=== PATIENT | male | born 1950 | race Caucasian/White ===

== ENCOUNTER 2017-08-03 06:07 | Emergency (ER) | payer OTHER ==
[~2017-08-03] VITALS: Ht 180.3 cm; Wt 122.0 kg
[~2017-08-03 06:07] MED LIST: 1-ME1LIQ PO; LISI-586 PO; SAW500CA6 PO
[2017-08-03 06:08] VITALS: BP 165/84; PULSE 71; RESP 16; TEMP 97.8; O2SAT 97
[2017-08-03] MEDS ORDERED: AMLO10TA2 PO (06:17)
[2017-08-03] MEDS ORDERED: TAMS0.4C4 (06:17)
[2017-08-03] MEDS ORDERED: LISI10TA PO (06:17)
[2017-08-03] MEDS ORDERED: SODIUM CHLOR 0.9% 1000 ML INJ 1,000 ML IV SCH (06:18)
[2017-08-03 06:20] VITALS: RESP 16; O2SAT 97
--- NOTE | 2017-08-03 06:25 | PD ---
HPI . Abdominal pain Chief Complaint: Abdominal Pain Time Seen by Provider: 06:15 Travel History International Travel<30 days: No Contact w/Intl Traveler<30days: No Traveled to known affect area: No History of Present Illness HPI 67-year-old male notes exacerbation of recurrent diffuse abdominal pain the patient is noted several times over the past year. Patient is self treated with peppermint before the pain is gone away. His pain is worse, not abating, and escalating. Denies fevers chills sweats, denies nausea vomiting diarrhea, denies melena or hematochezia. Patient also denies dysuria urgency frequency. [facility] Past Medical History Narrative Medical Past medical history reviewed Social History Alcohol Use: Yes Tobacco Use: No Substance Use: No Allergies-Medications (Allergen,Severity, Reaction): Coded Allergies: No Known Allergies (Unverified Adverse Reaction, Unknown, 08/03/17) Reported Meds & Prescriptions Reported Meds & Active Scripts Active Reported Tamsulosin (Tamsulosin HCl) 0.4 Mg Cap 0.4 Mg HS Lisinopril-Hctz 10-12.5 Mg Tab 1 Tab PO DAILY Amlodipine (Amlodipine Besylate) 10 Mg Tab 10 Mg PO DAILY Narrative Medication Allergies and medications reviewed Review of Systems Except as stated in HPI: all other systems reviewed are Neg General / Constitutional: No: Fever Eyes: No: Visual changes HENT: No: Headaches Cardiovascular: No: Chest Pain or Discomfort Respiratory: No: Shortness of Breath Gastrointestinal: Positive: Abdominal Pain, Loss of Appetite, No: Nausea, Vomiting, Hematemesis, Hematochezia, Constipation Genitourinary: No: Urgency, Frequency, Dysuria, Hematuria Musculoskeletal: No: Pain Skin: No Rash Neurologic: No: Weakness Psychiatric: No: Depression Endocrine: No: Polydipsia Hematologic/Lymphatic: No: Easy Bruising Physical Exam Narrative GENERAL: Awake and alert, oriented 3, no acute distress, however patient appears uncomfortable. Vital signs afebrile normal and stable SKIN: Warm and dry. Color slightly flushed, patient states that she is normal, no diaphoresis cyanosis or pallor. HEAD: Atraumatic. Normocephalic. EYES: Pupils equal and round. No scleral icterus. No injection or drainage. ENT: No nasal bleeding or discharge. Mucous membranes pink and moist. NECK: Trachea midline. No JVD. Supple full range of motion CARDIOVASCULAR: Regular rate and rhythm. S1-S2 no murmurs rubs gallops RESPIRATORY: No accessory muscle use. Clear to auscultation. Breath sounds equal bilaterally. GASTROINTESTINAL: Abdomen soft, diffusely tender, no rebound or guarding, not overly tympanitic, not firm, nondistended. Hepatic and splenic margins not palpable. MUSCULOSKELETAL: Extremities without clubbing, cyanosis, or edema. No obvious deformities. NEUROLOGICAL: Awake and alert. No obvious focal deficits PSYCHIATRIC: Appropriate mood and affect; insight and judgment normal. Data Data Last Documented VS Vital Signs Date Time Temp Pulse Resp B/P (MAP) Pulse Ox O2 Delivery O2 Flow Rate FiO2 08/03/17 06:20 16 97 Room Air 08/03/17 06:08 97.8 71 Orders Orders Complete Blood Count With Diff (08/03/17 06:18) Comprehensive Metabolic Panel (08/03/17 06:18) Lipase (08/03/17 06:18) Lactic Acid (08/03/17 06:18) Prothrombin Time / Inr (Pt) (08/03/17 06:18) Act Partial Throm Time (Ptt) (08/03/17 06:18) Urinalysis - C+S If Indicated (08/03/17 06:18) Ct Abd/Pel W Iv Contrast(Rout) (08/03/17 06:18) Iv Access Insert/Monitor (08/03/17 06:18) Ecg Monitoring (08/03/17 06:18) Oximetry (08/03/17 06:18) Sodium Chlor 0.9% 1000 Ml Inj (Ns 1000 M (08/03/17 06:18) Sodium Chloride 0.9% Flush (Ns Flush) (08/03/17 06:30) Electrocardiogram (08/03/17 06:18) Labs Laboratory Tests Test 08/03/17 06:20 08/03/17 06:35 White Blood Count 8.3 TH/MM3 Red Blood Count 4.48 MIL/MM3 Hemoglobin 15.0 GM/DL Hematocrit 43.9 % Mean Corpuscular Volume 98.0 FL Mean Corpuscular Hemoglobin 33.4 PG Mean Corpuscular Hemoglobin Concent 34.1 % Red Cell Distribution Width 12.8 % Platelet Count 207 TH/MM3 Mean Platelet Volume 9.1 FL Neutrophils (%) (Auto) 70.9 % Lymphocytes (%) (Auto) 20.0 % Monocytes (%) (Auto) 6.6 % Eosinophils (%) (Auto) 1.9 % Basophils (%) (Auto) 0.6 % Neutrophils # (Auto) 5.9 TH/MM3 Lymphocytes # (Auto) 1.7 TH/MM3 Monocytes # (Auto) 0.6 TH/MM3 Eosinophils # (Auto) 0.2 TH/MM3 Basophils # (Auto) 0.0 TH/MM3 CBC Comment DIFF FINAL Differential Comment Prothrombin Time 10.3 SEC Prothromb Time International Ratio 1.0 RATIO Activated Partial Thromboplast Time 22.4 SEC Blood Urea Nitrogen 13 MG/DL Creatinine 1.11 MG/DL Random Glucose 111 MG/DL Total Protein 7.5 GM/DL Albumin 3.6 GM/DL Calcium Level 8.6 MG/DL Alkaline Phosphatase 96 U/L Aspartate Amino Transf (AST/SGOT) 378 U/L Alanine Aminotransferase (ALT/SGPT) 240 U/L Total Bilirubin 1.1 MG/DL Sodium Level 138 MEQ/L Potassium Level 4.4 MEQ/L Chloride Level 106 MEQ/L Carbon Dioxide Level 24.9 MEQ/L Anion Gap 7 MEQ/L Estimat Glomerular Filtration Rate 66 ML/MIN Lipase 188 U/L Lactic Acid Level 1.4 mmol/L MDM Medical Decision Making Medical Screen Exam Complete: Yes Emergency Medical Condition: Yes Medical Record Reviewed: Yes Differential Diagnosis Abdominal pain Narrative Course Patient signed out to oncoming ED attending Dr. Martinez, pending laboratory examinations, and CAT scan abdomen pelvis. Patient again offered pain medications but declined. Diagnosis Primary Impression: Abdominal pain Qualified Codes: R10.9 - Unspecified abdominal pain Kash Diaz MD Aug 03, 2017 06:24
[2017-08-03] MEDS ORDERED: SODIUM CHLORIDE 0.9% FLUSH 10 ML FLUSH IV FLUSH PRN (06:30)
[2017-08-03 06:56] LABS: AUTOMATED NEUTROPHIL # 5.9 TH/MM3 (1.8-7.7); BASOPHIL % 0.6 % (0.0-2.0); EOSINOPHIL # 0.2 TH/MM3 (0-0.4); EOSINOPHIL % 1.9 % (0.0-4.0); HEMATOCRIT 43.9 % (39.0-51.0); LYMPHOCYTE # 1.7 TH/MM3 (1.0-4.8); MEAN CORPUSCULAR HEMOGLOBIN 33.4 PG (27.0-34.0); MEAN CORPUSCULAR HGB CONC 34.1 % (32.0-36.0); MEAN PLATELET VOLUME 9.1 FL (7.0-11.0); MONO % 6.6 % (0.0-8.0); MONOCYTE # 0.6 TH/MM3 (0-0.9); NEUT % 70.9 % (16.0-70.0); PLATELET COUNT 207 TH/MM3 (150-450); RED BLOOD COUNT 4.48 MIL/MM3 (4.50-5.90); RED CELL DISTRIBUTION WIDTH 12.8 % (11.6-17.2); WHITE BLOOD COUNT 8.3 TH/MM3 (4.0-11.0)
[2017-08-03 07:10] LABS: PROTHROMBIN TIME - PATIENT 10.3 SEC (9.8-11.6)
[2017-08-03 07:16] LABS: ALBUMIN 3.6 GM/DL (3.4-5.0); ALKALINE PHOSPHATASE 96 U/L (45-117); ALT (GPT) 240 U/L (12-78); AST (GOT) 378 U/L (15-37); BICARBONATE 24.9 MEQ/L (21.0-32.0); BLOOD UREA NITROGEN 13 MG/DL (7-18); CALCIUM 8.6 MG/DL (8.5-10.1); CHLORIDE 106 MEQ/L (98-107); CREATININE 1.11 MG/DL (0.60-1.30); GLOMERULAR FILTRATION RATE 66 ML/MIN (>89); GLUCOSE,RANDOM 111 MG/DL (74-106); SODIUM (NA) 138 MEQ/L (136-145); TOTAL BILIRUBIN ADULT 1.1 MG/DL (0.2-1.0); TOTAL PROTEIN 7.5 GM/DL (6.4-8.2)
[2017-08-03] MEDS ORDERED: IOHEXOL 350 MG/ML 10 ML VIAL (for RAD DIAG) IVCONTRAST ONE (07:53)
--- NOTE | 2017-08-03 08:22 | PD ---
Physical Exam Date Seen by Provider: Aug 03, 2017 Time Seen by Provider: 07:00 Narrative The patient was signed out to me by Dr. Calderon at change of shift. We were awaiting CT results. Patient presents with complaints of diffuse abdominal pain. Patient denies any fevers, chills. The patient had this a couple times over the last year. Patient states that normally he can take peppermint and it makes it better. There are no other complaints at time of examination. Please see Dr. Calderon's H&P for further details. Data Data Last Documented VS Vital Signs Date Time Temp Pulse Resp B/P (MAP) Pulse Ox O2 Delivery O2 Flow Rate FiO2 08/03/17 06:20 16 97 Room Air 08/03/17 06:08 97.8 71 Orders Orders Complete Blood Count With Diff (08/03/17 06:18) Comprehensive Metabolic Panel (08/03/17 06:18) Lipase (08/03/17 06:18) Lactic Acid (08/03/17 06:18) Prothrombin Time / Inr (Pt) (08/03/17 06:18) Act Partial Throm Time (Ptt) (08/03/17 06:18) Urinalysis - C+S If Indicated (08/03/17 06:18) Ct Abd/Pel W Iv Contrast(Rout) (08/03/17 06:18) Iv Access Insert/Monitor (08/03/17 06:18) Ecg Monitoring (08/03/17 06:18) Oximetry (08/03/17 06:18) Sodium Chlor 0.9% 1000 Ml Inj (Ns 1000 M (08/03/17 06:18) Sodium Chloride 0.9% Flush (Ns Flush) (08/03/17 06:30) Electrocardiogram (08/03/17 06:18) Iohexol 350 Inj (Omnipaque 350 Inj) (08/03/17 07:53) Labs Laboratory Tests Test 08/03/17 06:20 08/03/17 06:35 08/03/17 08:00 White Blood Count 8.3 TH/MM3 Red Blood Count 4.48 MIL/MM3 Hemoglobin 15.0 GM/DL Hematocrit 43.9 % Mean Corpuscular Volume 98.0 FL Mean Corpuscular Hemoglobin 33.4 PG Mean Corpuscular Hemoglobin Concent 34.1 % Red Cell Distribution Width 12.8 % Platelet Count 207 TH/MM3 Mean Platelet Volume 9.1 FL Neutrophils (%) (Auto) 70.9 % Lymphocytes (%) (Auto) 20.0 % Monocytes (%) (Auto) 6.6 % Eosinophils (%) (Auto) 1.9 % Basophils (%) (Auto) 0.6 % Neutrophils # (Auto) 5.9 TH/MM3 Lymphocytes # (Auto) 1.7 TH/MM3 Monocytes # (Auto) 0.6 TH/MM3 Eosinophils # (Auto) 0.2 TH/MM3 Basophils # (Auto) 0.0 TH/MM3 CBC Comment DIFF FINAL Differential Comment Prothrombin Time 10.3 SEC Prothromb Time International Ratio 1.0 RATIO Activated Partial Thromboplast Time 22.4 SEC Blood Urea Nitrogen 13 MG/DL Creatinine 1.11 MG/DL Random Glucose 111 MG/DL Total Protein 7.5 GM/DL Albumin 3.6 GM/DL Calcium Level 8.6 MG/DL Alkaline Phosphatase 96 U/L Aspartate Amino Transf (AST/SGOT) 378 U/L Alanine Aminotransferase (ALT/SGPT) 240 U/L Total Bilirubin 1.1 MG/DL Sodium Level 138 MEQ/L Potassium Level 4.4 MEQ/L Chloride Level 106 MEQ/L Carbon Dioxide Level 24.9 MEQ/L Anion Gap 7 MEQ/L Estimat Glomerular Filtration Rate 66 ML/MIN Lipase 188 U/L Lactic Acid Level 1.4 mmol/L Urine Color YELLOW Urine Turbidity CLEAR Urine pH 6.5 Urine Specific Mcclure 1.019 Urine Protein NEG mg/dL Urine Glucose (UA) NEG mg/dL Urine Ketones NEG mg/dL Urine Occult Blood NEG Urine Nitrite NEG Urine Bilirubin NEG Urine Urobilinogen LESS THAN 2.0 MG/DL Urine Leukocyte Esterase NEG Urine RBC 1 /hpf Urine WBC LESS THAN 1 /hpf Urine Squamous Epithelial Cells <1 /hpf Microscopic Urinalysis Comment CULT NOT INDICATED MDM Medical Record Reviewed: Yes Supervised Visit with DORA: No Differential Diagnosis Diverticulitis versus perforated viscus versus appendicitis versus gastroenteritis Narrative Course 67-year-old gentleman signed out to me by Dr. Bob VALERO at change of shift. The patient presented with nonspecific abdominal pain. Patient has no reported fevers, chills. White blood cell count is normal. Patient does have elevated transaminase levels. CT scan of the abdomen pelvis shows no evidence of acute pathology. There is an enlarged gallbladder with no pericholecystic fluid. There are nonspecific lung nodules that will need follow-up as an outpatient. I discussed the findings with both the patient and his girlfriend. Stated that he will need to have follow-up for his elevated transaminase levels and no nodules. He understands this will do so as directed Diagnosis Primary Impression: Abdominal pain Qualified Codes: R10.9 - Unspecified abdominal pain Additional Impressions: Elevated transaminase measurement Nonspecific lung nodules Enlarged gallbladder Additional Instruction: [place]minn diet. Follow-up with her primary care physician for the elevated liver enzymes and nonspecific lung nodules. Thank you for choosing [facility], we know you have a choice in healthcare. Disposition: 01 DISCHARGE HOME Condition: Stable Filiberto Martinez MD Aug 03, 2017 08:22
[2017-08-03 08:23] LABS: BILIRUBIN, URINE NEG (NEG); BLOOD, URINE NEG (NEG); GLUCOSE,URINE NEG (NEG); KETONE, URINE NEG (NEG); NITRITE,URINE NEG (NEG); PH, URINE 6.5 (5.0-8.5); SQUAMOUS EPITHELIAL CELL URINE <1 /hpf (0-5); URINE COLOR YELLOW (YELLW/STRAW); URINE LEUKOCYTE ESTERASE NEG (NEG)
--- NOTE | 2017-08-03 08:48 | RADRPT ---
EXAM DATE/TIME: 08/03/2017 07:45 [facility] COMPARISON: No previous studies available for comparison. INDICATIONS : Mid abdomen pain. IV CONTRAST: 97 cc Omnipaque 350 (iohexol) IV ORAL CONTRAST: Partial prescribed oral contrast ingested. RADIATION DOSE: 20.96 CTDIvol (mGy) MEDICAL HISTORY : Hypertension. SURGICAL HISTORY : Inguinal hernia repair. ENCOUNTER: Initial ACUITY: 1 day PAIN SCALE: 5/10 LOCATION: Left upper quadrant TECHNIQUE: Volumetric scanning of the abdomen and pelvis was performed. Using automated exposure control and ad justment of the mA and/or kV according to patient size, radiation dose was kept as low as reasonably achievable to obtain optimal diagnostic quality images. DICOM format image data is available electro nically for review and comparison. FINDINGS: LOWER LUNGS: Several small less than 5 mm nodules are seen in the right base, nonspecific. There is no pericardial effusion 2 well-circumscribed less than 5 mm hypodensities are present in the liver probably cysts. Gallbladder is prominent but unremarkable The spleen and pancreas appear normal There is symmetrical renal function Right kidney: This is 6.3 cm cyst right kidney containing one internal septation. Left kidney: There is day nonobstructing 2 mm stone lower pole left kidney with associated 2.5 cm. Cyst. Minimal atherosclerotic vascular calcifications are noted The region of the cecum and terminal ileum unremarkable Colon is relatively empty of stool scattered diverticuli in the transverse and descending colon. I do not see inflammatory changes in the mesentery In the pelvis the bladder is unremarkable. Prostate is prominent Small inguinal hernias containing only fat There is no significant ankle adenopathy Review of bone windows reveals only degenerative changes. . CONCLUSION: 1. Mildly prominent gallbladder is otherwise unremarkable. 2. Small nodules nonspecific right lung base. 3. Nonobstructing left renal stone 4. I do not see etiology for the nonspecific abdominal pain 5. CT scan of the chest on elective basis would be of benefit to evaluate for lung nodules. Sonny Gallo MD FACR on August 03, 2017 at 8:38 Board Certified Radiologist. This report was verified electronically.
[2017-08-03 09:14] VITALS: BP 158/82; PULSE 75; RESP 17; O2SAT 100
--- NOTE | 2017-08-03 12:21 | EKG ---
Date Performed: 08/03/2017 Time Performed: 06:27:05 PTAGE: 67 years EKG: Sinus rhythm NORMAL ECG NO PREVIOUS TRACING 08/03/2017 1827 DOCTOR: Luis Angel Zamora Interpretating Date/Time 08/03/2017 12:20:04
== END 2017-08-03 09:18 | disposition home or self-care (01) ==
LOC: NEPC 06:07
DX: R10.84 Generalized abdominal pain (principal); R74.0 Nonspecific elevation of levels of transaminase and lactic acid dehydrogenase [LDH]; R91.8 Other nonspecific abnormal finding of lung field; K82.8 Other specified diseases of gallbladder; I10 Essential (primary) hypertension
CPT/HCPCS: 74177; 80053; 81001; 83605; 83690; 85025; 85610; 85730; 93005; 99285; J7030; Q9967